=== PATIENT | female | born 1965 | race Two or more races ===

== ENCOUNTER 2022-10-06 21:24 | Emergency (ER) | payer MEDICARE, OTHER ==
[~2022-10-06] VITALS: Ht 160 cm; Wt 68.2 kg
[2022-10-06] MEDS ORDERED: ACETAMINOPHEN 500 MG TAB PO ONE (21:45)
[2022-10-06] MEDS ORDERED: BENZ100C19 PO (23:46)
[2022-10-06] MEDS ORDERED: LORA-483 GT (23:46)
[2022-10-07 01:25] VITALS: BP 153/85
== END 2022-10-07 01:58 | disposition home or self-care (01) ==
LOC: ER 21:24
DX: J06.9 Acute upper respiratory infection, unspecified (principal); Z20.822 Contact with and (suspected) exposure to COVID-19
CPT/HCPCS: 36415; 87426; 87804

== ENCOUNTER 2023-12-18 19:15 | Emergency (ER) | payer OTHER ==
[~2023-12-18] VITALS: Ht 160 cm; Wt 72.4 kg
[~2023-12-18 19:15] MED LIST: BENZ100C19 PO; LORA-483 GT
[2023-12-19 00:34] VITALS: BP 141/85; PULSE 65; RESP 16; TEMP 98.4; O2SAT 97
== END 2023-12-19 01:04 | disposition home or self-care (01) ==
LOC: ER 19:15
DX: S63.92XA Sprain of unspecified part of left wrist and hand, initial encounter (principal); E11.9 Type 2 diabetes mellitus without complications; I10 Essential (primary) hypertension; W18.09XA Striking against other object with subsequent fall, initial encounter; Y93.89 Activity, other specified; Y92.89 Other specified places as the place of occurrence of the external cause; Y99.8 Other external cause status
CPT/HCPCS: 73130